=== PATIENT | male | born 1965 | race African-American/Black ===

== ENCOUNTER 2016-09-18 12:21 | Emergency (ER) | payer BC ==
[~2016-09-18] VITALS: Ht 165.1 cm; Wt 59.0 kg
[~2016-09-18 12:21] MED LIST: NAPR375T3 PO
[2016-09-18 12:24] VITALS: BP 128/79
--- NOTE | 2016-09-18 12:53 | PHYS DOC ---
Past Medical History Past Medical History: No Pertinent History Past Surgical History: Other Additional Past Surgical Histo: R knee Alcohol Use: Occasionally Drug Use: None Adult General Chief Complaint Chief Complaint: KNEE INJURY [facility] HPI Patient is a 51 year old male presents emergency department stating that he is having left knee pain. He states that he was jumping up and down on August 14 when he injured his left knee. He was seen here in the emergency department and had x-rays done which were negative for any fractures. He was provided with naproxen for pain and discomfort. He states he has been using an Pio wrap as well. Patient states that he called Dr. Monroe's office today to try to get an appointment in which she was on successful at obtaining an appointment. Patient then comes to the emergency department stating that he is having increased pain and discomfort and is requesting pain medication. Patient denies any new injuries denies any numbness or tingling down to his lower extremity. Review of Systems Review of Systems Constitutional: Denies fever or chills [] Eyes: Denies change in visual acuity, redness, or eye pain [] HENT: Denies nasal congestion or sore throat [] Respiratory: Denies cough or shortness of breath [] Cardiovascular: No additional information not addressed in HPI [] GI: Denies abdominal pain, nausea, vomiting, bloody stools or diarrhea [] : Denies dysuria or hematuria [] Musculoskeletal: Denies back pain. Left knee pain and discomfort Integument: Denies rash or skin lesions [] Neurologic: Denies headache, focal weakness or sensory changes [] Allergies Allergies Allergies Coded Allergies Type Severity Reaction Last Updated Verified No Known Drug Allergies 09/20/15 No Physical Exam Physical Exam Constitutional: Well developed, well nourished, no acute distress, non-toxic appearance. [] HENT: Normocephalic, atraumatic, bilateral external ears normal, oropharynx moist, no oral exudates, nose normal. [] Eyes: PERRLA, EOMI, conjunctiva normal, no discharge. [] Neck: Normal range of motion, no tenderness, supple, no stridor. [] Cardiovascular:Heart rate regular rhythm, no murmur [] Lungs & Thorax: Bilateral breath sounds clear to auscultation [] Abdomen: Bowel sounds normal, soft, no tenderness, no masses, no pulsatile masses. [] Skin: Warm, dry, no erythema, no rash. [] Back: No tenderness Extremities: No tenderness, no cyanosis, no clubbing, ROM intact, no edema. Left knee with negative Cherrie negative valgus and negative vargus noted. Patient able to ambulate without difficulty. Neurologic: Alert and oriented X 3, normal motor function, normal sensory function, no focal deficits noted. [] Psychologic: Affect normal, judgement normal, mood normal. [] Current Patient Data Vital Signs Vital Signs Date Time Temp Pulse Resp B/P Pulse Ox O2 Delivery O2 Flow Rate FiO2 09/18/16 12:24 97.9 98 16 97 Room Air 97.9 EKG EKG [] Radiology/Procedures Radiology/Procedures [] Course & Med Decision Making Course & Med Decision Making Pertinent Labs and Imaging studies reviewed. (See chart for details) Patient was seen here on August 14 and was prescribed naproxen for pain and discomfort. We'll recommend ice packs and elevation. We'll also recommended Pio wrap to help with the discomfort. Also recommended patient to follow up with Dr. Cavazos or Dr. Agudelo. Ice packs on 20 minutes off 20 minutes several times a day. Signs and symptoms to return back to emergency department been provided. Patient agrees with discharge instructions treatment regimens and follow-up recommendations. A call was placed to orthopedic Dr. Agudelo/[facility] office appointment was set up for the patient to be seen on September 26 at 8:45 in the morning with the nurse practitioner. [] Dragon Disclaimer Dragon Disclaimer This electronic medical record was generated, in whole or in part, using a voice recognition dictation system. Departure Departure Impression: Primary Impression: Knee pain, left Disposition: 01 HOME, SELF-CARE Condition: STABLE Referrals: NO PCP (PCP) Patient Instructions: Knee Pain, [id number] Additional Instructions: Activity as tolerated. Ice packs on 20 minutes off 20 minutes several times a day. Elevation as much as possible. Medication as prescribed. Take this medication with food as it may cause an upset stomach. He did develop an upset stomach stopped taking the medication. Wear the Pio wrap for comfort. Follow-up with orthopedic on September 26 at 8:45 in the morning be at the appointment at 8:30 to fill out paperwork. Return back to emergency department for signs and symptoms of become worse. Scripts Naproxen 500 Mg Tablet1 Tab PO BID #20 TAB Prov:LEONCIO EMERY NP 09/18/16 LEONCIO EMERY NP Sep 18, 2016 12:53
[2016-09-18] MEDS ORDERED: NAPR500T3 PO (13:11)
== END 2016-09-18 13:20 | disposition home or self-care (01) ==
LOC: ER 12:25
DX: M25.562 Pain in left knee (principal); Z98.890 Other specified postprocedural states
CPT/HCPCS: 99282

== ENCOUNTER 2017-06-23 03:54 | Emergency (ER) | payer BC ==
[~2017-06-23] VITALS: Ht 167.6 cm; Wt 59.0 kg
[~2017-06-23 03:54] MED LIST changes: +NAPR-695 PO; -NAPR375T3 PO; +NAPR500T4 PO
[2017-06-23 04:09] VITALS: BP 133/92
[2017-06-23] MEDS ORDERED: HYDR25CA PO (04:12)
--- NOTE | 2017-06-23 04:12 | PHYS DOC ---
Past Medical History Past Medical History: No Pertinent History Past Surgical History: Other Additional Past Surgical Histo: R knee Alcohol Use: Occasionally Drug Use: None Adult General Chief Complaint Chief Complaint: INSECT BITE HPI HPI This patient is a pleasant 52-year-old -[place] male otherwise healthy who presents tonight because he believes he's been bitten by some insects causing an itchy rash in the shoulder on the left. Patient first noted the rash yesterday when he came home after work. Rashes noted on his shoulder where he felt the insect biting. Tonight while sleeping he felt something crawling on him and he reached up he felt like he had a bug biting him on his shoulder again he came in now with a sample of the bug that bit him and caused a rash to. Patient denies any other specific complaints of fever, joint pains, chills , shortness of breath, bleeding from this rash, almost all moment. Patient denies any history of night sweats or weight loss. No recent antibiotics or medication changes Review of Systems Review of Systems Constitutional: Denies fever or chills [] Eyes: Denies change in visual acuity, redness, or eye pain [] HENT: Denies nasal congestion or sore throat [] Respiratory: Denies cough or shortness of breath [] Cardiovascular: No additional information not addressed in HPI [] GI: Denies abdominal pain, nausea, vomiting, bloody stools or diarrhea [] : Denies dysuria or hematuria [] Musculoskeletal: Denies back pain or joint pain [] Integument: Patient claims he has his multiple lesions on his left shoulder left her back secondary to insect bites Neurologic: Denies headache, focal weakness or sensory changes [] All other systems were reviewed and found to be within normal limits, except as documented in this note. Current Medications Current Medications Current Medications Medications (Trade) Dose Ordered Sig/Christen Start Time Stop Time Status Last Admin Dose Admin Hydroxyzine Pamoate (Vistaril) 25 mg PRN Q6HRS PRN 06/23/17 04:15 UNV Allergies Allergies Allergies Coded Allergies Type Severity Reaction Last Updated Verified No Known Drug Allergies 09/20/15 No Physical Exam Physical Exam Vital signs recorded on the chart patient and to be tachycardic likely secondary to agitation from itching. Constitutional: Well developed, well nourished, no acute distress, non-toxic appearance. [] Cardiovascular:Heart rate regular rhythm, no murmur [] Lungs & Thorax: Bilateral breath sounds clear to auscultation [] Skin: Warm, dry, no erythema, he has multiple small insect bites on his left upper shoulder with no vesicles, no satellite lesions, no evidence of target lesions no evidence of active bleeding. Patient has no joint involvement no palm or sole involvement or petechiae or purpura.[] Back: No tenderness, no CVA tenderness. [] Neurologic: Alert and oriented X 3,[] Psychologic: Affect normal, judgement normal, mood normal. [] Current Patient Data Vital Signs Vital Signs Date Time Temp Pulse Resp B/P (MAP) Pulse Ox O2 Delivery O2 Flow Rate FiO2 06/23/17 04:09 97.9 109 16 95 Room Air 97.9 EKG EKG [] Radiology/Procedures Radiology/Procedures [] Course & Med Decision Making Course & Med Decision Making Pertinent Labs and Imaging studies reviewed. (See chart for details) []Comes in with suspected insect bite unclear cause. He brought in a sample of the insect the believe is biting him but to me looks more like a piece of relief. Patient given reasons to clean his house and apply a bug repellent. Also suggest that he any extremity to come look at his apartment to see this any other signs of bed bugs or other bugs biting him that would be treated with local bug sprays. rash medical decision making reevaluation: The patient is now resting comfortably and feels better, is alert, is nontoxic, and is in no acute distress. The patient has a normal mental status and is neurologically intact. The rash presenting today as part of patient despite does not have any petechiae purpura, there is no palm or sole involvement, there is no joint pain or swelling, there are no mucous membrane lesions, no signs of abscess, and no bullae. The patient appears well, has no fever, no altered mental status, or signs of systemic toxicity. The history, exam, and diagnostic testing (if any) and current condition did not demonstrate signs of sepsis, Triangle spotted fever, meningitis, meningococcemia, Lyme disease, toxic shock syndrome, disseminated gonorrhea, endocarditis, measles, mumps, rubella, necrotizing fasciitis, TEN, Tomasz Aly syndrome, pemphigus vulgaris, dress syndrome, staphylococcal scalded skin syndrome or other systemic illness or cardiac further treatment, testing or consultation in the emergency department. The patient's vital signs have been stable, the patient condition is stable and appropriate for discharge. The patient will pursue further outpatient evaluation and primary care management as indicated in the discharge instructions. Dragon Disclaimer Dragon Disclaimer This electronic medical record was generated, in whole or in part, using a voice recognition dictation system. Departure Departure Impression: Primary Impression: Insect bites Additional Impression: Itchy skin Disposition: HOME, SELF-CARE Condition: STABLE Referrals: NO PCP (PCP) Patient Instructions: Insect Bite Additional Instructions: discharge: I've spoken with the patient and/or caregivers. I've explained the patient's condition, diagnosis and treatment plan based on information available to me at this time. I've answered the patient's and/or caregivers questions and addressed any concerns. The patient and/or caregivers have a good understanding the patient's diagnosis, condition and treatment plan as can be expected at this point. Vital signs have been stabilized. The patient's condition is stable for discharge from the emergency department. The patient will pursue further outpatient evaluation with her primary care provider or other designated consulting physician as outlined in the discharge instructions. Patient and/or caregivers are agreeable to this plan of care and follow-up instructions have been explained in detail. The patient and/or caregivers have received these instructions in written format and expressed understanding of these discharge instructions. The patient and her caregivers are aware that if any significant change in condition or worsening of symptoms should prompt him to immediately return to this of the closest emergency department. If an emergent department is not readily available I would encourage him to call 911. Scripts Hydroxyzine Pamoate (VISTARIL) 25 Mg Capsule 25 MG PO QID for 5 Days, #20 CAP Prov: ROMEL JOHN MD 06/23/17 Problem Qualifiers ROMEL JOHN MD Jun 23, 2017 04:12
[2017-06-23] MEDS ORDERED: hydrOXYzine PAMOATE 25 MG CAPSULE PO PRN (04:15)
== END 2017-06-23 04:20 | disposition home or self-care (01) ==
LOC: ER 03:54
DX: S40.262A Insect bite (nonvenomous) of left shoulder, initial encounter (principal); W57.XXXA Bitten or stung by nonvenomous insect and other nonvenomous arthropods, initial encounter; Y93.89 Activity, other specified; Y92.89 Other specified places as the place of occurrence of the external cause; Y99.8 Other external cause status
CPT/HCPCS: 99283; Q0177

== ENCOUNTER 2018-01-19 08:56 | Emergency (ER) | payer SELFPAY, BC ==
[2018-01-19] MEDS: CYCLOBENZAPRINE 10 MG TABLET. PO (09:26)
[2018-01-19] MEDS: HYDROcodone/APAP 5/325MG 1 TAB TABLET PO (09:27)
== END 2018-01-19 10:37 | disposition home or self-care (01) ==
LOC: ER 10:37
DX: S90.112A Contusion of left great toe without damage to nail, initial encounter (principal); W22.01XA Walked into wall, initial encounter; Y93.89 Activity, other specified; Y92.89 Other specified places as the place of occurrence of the external cause; Y99.8 Other external cause status
CPT/HCPCS: 73630; 99283; 99284

== ENCOUNTER 2019-04-14 12:55 | Emergency (ER) | payer SELFPAY ==
[~2019-04-14] VITALS: Ht 167.6 cm; Wt 59.0 kg
[~2019-04-14 12:55] MED LIST changes: +HYDR25CA PO; +NAPR-514 PO; -NAPR500T4 PO
[2019-04-14 14:18] VITALS: BP 122/86
--- NOTE | 2019-04-14 14:21 | PHYS DOC ---
Past Medical History Past Medical History: No Pertinent History Past Surgical History: Other Additional Past Surgical Histo: R knee Alcohol Use: Occasionally Drug Use: None Adult General Chief Complaint Chief Complaint: DIARRHEA HPI HPI Patient is a 54 year old male who presents with complaining of diarrhea. Patient states he thinks he ate too much onion with his burger yesterday and had 3 episodes of diarrhea since last night with the last one about 2 hours prior to arrival to ER. And complaining of mild crampy abdominal pain without nausea and vomiting, fever and chills, urinary symptom, sick contact. Patient states he missed his work today and wants work excuse. Review of Systems Review of Systems Constitutional: Denies fever or chills [] Eyes: Denies change in visual acuity, redness, or eye pain [] HENT: Denies nasal congestion or sore throat [] Respiratory: Denies cough or shortness of breath [] Cardiovascular: No additional information not addressed in HPI [] GI: Denies nausea, vomiting, bloody stools, reports abdominal pain and diarrhea [] : Denies dysuria or hematuria [] Musculoskeletal: Denies back pain or joint pain [] Integument: Denies rash or skin lesions [] Neurologic: Denies headache, focal weakness or sensory changes [] Endocrine: Denies polyuria or polydipsia [] All other systems were reviewed and found to be within normal limits, except as documented in this note. Allergies Allergies Allergies Coded Allergies Type Severity Reaction Last Updated Verified No Known Drug Allergies 09/20/15 No Physical Exam Physical Exam Constitutional: Well developed, well nourished, no distress, non-toxic appearance. [] HENT: Normocephalic, atraumatic, moist oral mucosa. Eyes: PERRLA, EOMI, conjunctiva normal, no discharge. [] Neck: Normal range of motion, no tenderness, supple, no stridor. [] Cardiovascular:Heart rate regular rhythm, no murmur [] Lungs & Thorax: Bilateral breath sounds clear to auscultation [] Abdomen: Bowel sounds normal, soft, no tenderness, no masses, no pulsatile masses. [] Skin: Warm, dry, no erythema, no rash. [] Back: No tenderness, no CVA tenderness. [] Extremities: No tenderness, no cyanosis, no clubbing, ROM intact, no edema. [] Neurologic: Alert and oriented X 3, no focal deficits noted. [] Psychologic: Affect normal, judgement normal, mood normal. [] Current Patient Data Vital Signs Vital Signs Date Time Temp Pulse Resp B/P (MAP) Pulse Ox O2 Delivery O2 Flow Rate FiO2 04/14/19 13:45 98.0 84 17 119/83 (95) 95 Room Air 98.0 EKG EKG [] Radiology/Procedures Radiology/Procedures [] Course & Med Decision Making Course & Med Decision Making Evaluation of patient in ER showed 54-year-old male patient with complaint of 2 episodes of diarrhea since yesterday without other complaints. Patient had unremarkable physical exam and wanted a work excuse. Dragon Disclaimer Dragon Disclaimer This electronic medical record was generated, in whole or in part, using a voice recognition dictation system. Departure Departure Impression: Primary Impression: Food poisoning Disposition: HOME, SELF-CARE (at 1420) Condition: STABLE Referrals: NO PCP (PCP) Patient Instructions: Diarrhea, Food Poisoning Additional Instructions: Drink plenty of liquids Follow-up with your primary care physician in 3-5 days Return to ER if not getting better Do not eat solid food today Take [id number] Imodium as needed for diarrhea ERNESTO BURCH MD Apr 14, 2019 14:21
== END 2019-04-14 14:25 | disposition home or self-care (01) ==
LOC: ER 12:55
DX: A05.9 Bacterial foodborne intoxication, unspecified (principal); R19.7 Diarrhea, unspecified
CPT/HCPCS: 99281

== ENCOUNTER 2019-04-15 12:38 | Emergency (ER) | payer SELFPAY ==
[~2019-04-15] VITALS: Ht 167.6 cm; Wt 59.0 kg
[2019-04-15 12:49] VITALS: BP 151/100
--- NOTE | 2019-04-15 12:51 | PHYS DOC ---
Past Medical History Past Medical History: No Pertinent History Past Surgical History: Other Additional Past Surgical Histo: R knee Alcohol Use: Occasionally Drug Use: None Adult General Chief Complaint Chief Complaint: DIARRHEA HPI HPI Patient is a 54 year old male who presents with complaining of diarrhea. Patient was seen in this emergency room yesterday with complaining of 2 episodes of diarrhea and was advised to take liquid diet and [id number] Imodium. Patient did not take any medication and had hamburger last night and had 2 more episodes of diarrhea without abdominal pain, nausea and vomiting, fever and chills, urinary symptom. Patient asking for work excuse. Review of Systems Review of Systems Constitutional: Denies fever or chills [] Eyes: Denies change in visual acuity, redness, or eye pain [] HENT: Denies nasal congestion or sore throat [] Respiratory: Denies cough or shortness of breath [] Cardiovascular: No additional information not addressed in HPI [] GI: Denies abdominal pain, nausea, vomiting, bloody stools, reports diarrhea [] : Denies dysuria or hematuria [] Musculoskeletal: Denies back pain or joint pain [] Integument: Denies rash or skin lesions [] Neurologic: Denies headache, focal weakness or sensory changes [] Endocrine: Denies polyuria or polydipsia [] All other systems were reviewed and found to be within normal limits, except as documented in this note. Allergies Allergies Allergies Coded Allergies Type Severity Reaction Last Updated Verified No Known Drug Allergies 09/20/15 No Physical Exam Physical Exam Constitutional: Well developed, well nourished, no distress, non-toxic appearance. [] HENT: Normocephalic, atraumatic. Eyes: PERRLA, EOMI, conjunctiva normal, no discharge. [] Neck: Normal range of motion, no tenderness, supple, no stridor. [] Cardiovascular:Heart rate regular rhythm, no murmur [] Lungs & Thorax: Bilateral breath sounds clear to auscultation [] Abdomen: Bowel sounds normal, soft, no tenderness, no masses, no pulsatile masses. [] Skin: Warm, dry, no erythema, no rash. [] Back: No tenderness, no CVA tenderness. [] Extremities: No tenderness, no cyanosis, no clubbing, ROM intact, no edema. [] Neurologic: Alert and oriented X 3, no focal deficits noted. [] Psychologic: Affect normal, judgement normal, mood normal. [] Current Patient Data Vital Signs Vital Signs Date Time Temp Pulse Resp B/P (MAP) Pulse Ox O2 Delivery O2 Flow Rate FiO2 04/15/19 12:49 98.1 100 18 151/100 (117) 98 Room Air 98.1 EKG EKG [] Radiology/Procedures Radiology/Procedures [] Course & Med Decision Making Course & Med Decision Making I've spoken with the patient and/or caregivers. I've explained the patient's condition, diagnosis and treatment plan based on information available to me at this time. I've answered the patient's and/or caregivers questions and addressed any concerns. The patient and/or caregivers have a good understanding the patient's diagnosis, condition and treatment plan as can be expected at this point. Vital signs have been stabilized. The patient's condition is stable for discharge from the emergency department. The patient will pursue further outpatient evaluation with her primary care provider or other designated consulting physician as outlined in the discharge instructions. Patient and/or caregivers are agreeable to this plan of care and follow-up instructions have been explained in detail. The patient and/or caregivers have received these instructions in written format and expressed understanding of these discharge instructions. The patient and her caregivers are aware that if any significant change in condition or worsening of symptoms should prompt him to immediately return to this of the closest emergency department. If an emergent department is not readily available I would encourage him to call 911. Beka Disclaimer Dragon Disclaimer This electronic medical record was generated, in whole or in part, using a voice recognition dictation system. Departure Departure Impression: Primary Impression: Diarrhea Additional Impression: Encounter to obtain excuse from work Disposition: HOME, SELF-CARE (at 1250) Condition: STABLE Referrals: NO PCP (PCP) Patient Instructions: Diarrhea Additional Instructions: Drink plenty of liquids Follow-up with your primary care physician in 3-5 days Return to ER if not getting better Take [id number] Imodium as needed for diarrhea Do not eat solid food for 24 hours Problem Qualifiers Primary Impression: Diarrhea Diarrhea type: unspecified type Qualified Codes: R19.7 - Diarrhea, unspecified ERNESTO BURCH MD Apr 15, 2019 12:51
== END 2019-04-15 12:53 | disposition home or self-care (01) ==
LOC: ER 12:38
DX: R19.7 Diarrhea, unspecified (principal)
CPT/HCPCS: 99281

== ENCOUNTER 2019-09-16 10:39 | Emergency (ER) | payer SELFPAY ==
[~2019-09-16] VITALS: Ht 167.6 cm; Wt 58.0 kg
[2019-09-16 11:45] VITALS: BP 124/88
--- NOTE | 2019-09-16 13:09 | PHYS DOC ---
Past Medical History Past Medical History: No Pertinent History Past Surgical History: Other Additional Past Surgical Histo: R knee Smoking Status: Never Smoker Alcohol Use: Occasionally Drug Use: None Adult General Chief Complaint Chief Complaint: DIARRHEA HPI HPI Patient is a 54 year old male patient who presents with diarrhea. Patient reports he has had an intermittent diarrhea on and off for the last 2 days. States he is had only 2-3 episodes total of diarrhea states he had to miss work because of this. States he does not have any abdominal pain, no nausea, no vomiting, no diarrhea. States he has been eating a lot of [place] food recently, thinks this may be what is causing his diarrhea. States he had a formed stool this morning after he had a diarrhea episode when he woke up. D enies any recent antibiotic use. Denies any medications. Denies any other concerns Review of Systems Review of Systems Constitutional: Denies fever or chills [] Eyes: Denies change in visual acuity, redness, or eye pain [] HENT: Denies nasal congestion or sore throat [] Respiratory: Denies cough or shortness of breath [] Cardiovascular: No additional information not addressed in HPI [] GI: Denies abdominal pain, nausea, vomiting, bloody stools reports to 3 episodes of diarrhea over the last couple days. [] : Denies dysuria or hematuria [] Musculoskeletal: Denies back pain or joint pain [] Integument: Denies rash or skin lesions [] Neurologic: Denies headache, focal weakness or sensory changes [] Endocrine: Denies polyuria or polydipsia [] All other systems were reviewed and found to be within normal limits, except as documented in this note. Allergies Allergies Allergies Coded Allergies Type Severity Reaction Last Updated Verified No Known Drug Allergies 09/20/15 No Physical Exam Physical Exam Constitutional: Well developed, well nourished, no acute distress, non-toxic appearance. Conversational [] HENT: Normocephalic, atraumatic,, oropharynx moist, no oral exudates, nose normal. [] Eyes: PERRLA, EOMI, conjunctiva normal, no discharge. [] Neck: Normal range of motion, no tenderness, supple, no stridor. [] Cardiovascular:Heart rate regular rhythm, no murmur [] Lungs & Thorax: Bilateral breath sounds clear to auscultation [] Abdomen: Bowel sounds normal, soft, no tenderness, no masses, no pulsatile m asses. [] Skin: Warm, dry, no erythema, no rash. [] Back: No tenderness, no CVA tenderness. [] Extremities: No tenderness, no cyanosis, no clubbing, ROM intact, no edema. [] Neurologic: Alert and oriented X 3, normal motor function, normal sensory function, no focal deficits noted. [] Psychologic: Affect normal, judgement normal, mood normal. [] Current Patient Data Vital Signs Vital Signs Date Time Temp Pulse Resp B/P (MAP) Pulse Ox O2 Delivery O2 Flow Rate FiO2 09/16/19 11:45 98.3 96 16 124/88 (100) 95 98.3 09/16/19 10:45 Room Air EKG EKG [] Radiology/Procedures Radiology/Procedures [] Course & Med Decision Making Course & Med Decision Making Pertinent Labs and Imaging studies reviewed. (See chart for details) [Discussed findings with patient, with consideration to do labs due to his recurrent diarrhea. Patient states he does not want any lab done at this time. States he does not feel it is that bad. Discussed with patient importance of basic diet, avoiding heavy and greasy foods. He may try to take some akpz-nxh-dhtethp medications as needed. Follow-up with his primary care provider as needed. Patient with no further questions or concerns. Provide work note to return to work tomorrow] Dragon Disclaimer Dragon Disclaimer This electronic medical record was generated, in whole or in part, using a voice recognition dictation system. Departure Departure Impression: Primary Impression: Diarrhea Disposition: HOME, SELF-CARE Condition: STABLE Referrals: NO PCP (PCP) Patient Instructions: Diarrhea, Diet for Diarrhea, Adult Additional Instructions: As we discussed, try to eat a basic diet over the next few days. Nothing heavy, nothing spicy, nothing greasy. Try to do basic diet such as bananas, rice, apples, toast. Drink plenty fluids. Get some rest. Follow-up with your prima ry care provider as needed Problem Qualifiers Primary Impression: Diarrhea Diarrhea type: unspecified type Qualified Codes: R19.7 - Diarrhea, unspecified WIL DUBON APRN Sep 16, 2019 13:09
== END 2019-09-16 13:32 | disposition home or self-care (01) ==
LOC: ER 10:39
DX: R19.7 Diarrhea, unspecified (principal)
CPT/HCPCS: 99281

== ENCOUNTER 2019-11-29 16:30 | Emergency (ER) | payer SELFPAY ==
[~2019-11-29] VITALS: Ht 167.6 cm; Wt 64.5 kg
[2019-11-29 16:36] VITALS: BP 136/84
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
== END 2019-11-29 17:15 | disposition home or self-care (01) ==
LOC: ER 16:30
DX: S00.33XA Contusion of nose, initial encounter (principal); R60.0 Localized edema; Z98.890 Other specified postprocedural states; Y08.89XA Assault by other specified means, initial encounter; Y93.89 Activity, other specified; Y92.89 Other specified places as the place of occurrence of the external cause; Y99.8 Other external cause status
CPT/HCPCS: 99281

== ENCOUNTER 2020-03-13 11:08 | Emergency (ER) | payer SELFPAY ==
[~2020-03-13] VITALS: Ht 167.6 cm; Wt 63.6 kg
[2020-03-13 12:10] VITALS: BP 173/86
[2020-03-13] MEDS ORDERED: diazePAM 5 MG TABLET PO ONE (13:00)
[2020-03-13] MEDS ORDERED: HYDROcodone/APAP 5/325MG 1 TAB TABLET PO ONE (13:00)
[2020-03-13] MEDS ORDERED: methylPREDNISolone SOD SUCC PF 125 MG/2 ML VIAL. IM ONE (13:00)
[2020-03-13] MEDS ORDERED: KETOROLAC 60 MG/2 ML VIAL. IM ONE (13:00)
[2020-03-13] MEDS ORDERED: METH4TAB2 PO (13:21)
[2020-03-13] MEDS ORDERED: CYCL10TA2 PO (13:21)
[2020-03-13] MEDS ORDERED: DICL50TA2 PO (13:21)
--- NOTE | 2020-03-13 13:22 | PHYS DOC ---
Past Medical History Past Medical History: No Pertinent History (BEVERLY EWING APRN) Past Surgical History: Other Additional Past Surgical Histo: R knee, T6 & T7 surgery (BEVERLY EWING APRN) Smoking Status: Never Smoker Alcohol Use: Occasionally Drug Use: None (BEVERLY EWING APRN) General Adult EDM: Chief Complaint: BACK PAIN OR INJURY HPI: HPI: Patient is a 55 year old male who presents with mild intermittent left low back pain nonradiating in nature that began 3 weeks ago after he lifted something heavy at work. Patient denies any loss of bowel/bladder function. States the pain is worse on certain movements. Denies anything specifically relieving the pain but states his had similar issue before and was given a couple shots in the ED with some relief. Denies any numbness or tingling to bilateral lower extremities. (BEVERLY EWING APRN) Review of Systems: Review of Systems: Constitutional: Denies fever or chills. [] GI: Denies abdominal pain, nausea, vomiting, bloody stools or diarrhea. [] : Denies dysuria. [] Musculoskeletal: Reports left low back pain Integument: Denies rash. [] Neurologic: Denies headache, focal weakness or sensory changes. [] Psychiatric: Denies depression or anxiety. [] (BEVERLY EWING APRN) Heart Score: Risk Factors: Risk Factors: DM, Current or recent (<one month) smoker, HTN, HLP, family history of CAD, obesity. Risk Scores: Score 0 - 3: 2.5% MACE over next 6 weeks - Discharge Home Score 4 - 6: 20.3% MACE over next 6 weeks - Admit for Clinical Observation Score 7 - 10: 72.7% MACE over next 6 weeks - Early Invasive Strategies (BEVERLY EWING APRN) Current Medications: Current Medications Medications (Trade) Dose Ordered Sig/Christen Start Time Stop Time Status Last Admin Dose Admin Acetaminophen/ Hydrocodone Bitart (Lortab 5/325) 1 tab 1X ONCE 03/13/20 13:00 03/13/20 13:01 DC 03/13/20 13:06 1 TAB Diazepam (Valium) 5 mg 1X ONCE 03/13/20 13:00 03/13/20 13:01 DC 03/13/20 13:06 5 MG Ketorolac Tromethamine (Toradol Im) 60 mg 1X ONCE 03/13/20 13:00 03/13/20 13:01 DC 03/13/20 13:07 60 MG Methylprednisolone Sodium Succinate (SOLU-Medrol 125MG VIAL) 125 mg 1X ONCE 03/13/20 13:00 03/13/20 13:01 DC 03/13/20 13:06 125 MG (BEVERLY EWING APRN) Allergies: Allergies: Allergies Coded Allergies Type Severity Reaction Last Updated Verified No Known Drug Allergies 09/20/15 No (BEVERLY EWING APRN) Physical Exam: PE: Constitutional: Well developed, well nourished, no acute distress, non-toxic appearance. [] Abdomen: Bowel sounds normal, soft, no tenderness, no masses, no pulsatile masses. [] Skin: Warm, dry, no erythema, no rash. [] Back: Diffuse paraspinal muscle tenderness to the left lower lumbar spine, no midline lumbar spine tenderness, no CVA tenderness. [] Extremities: No tenderness, no cyanosis, no clubbing, ROM intact, no edema. [] Neurologic: Alert and oriented X 3, normal motor function, normal sensory function, no focal deficits noted. [] Psychologic: Affect normal, judgement normal, mood normal. [] (BEVERLY EWING APRN) Current Patient Data: Vital Signs: Vital Signs Date Time Temp Pulse Resp B/P (MAP) Pulse Ox O2 Delivery O2 Flow Rate FiO2 03/13/20 13:06 20 98 03/13/20 12:10 99.2 98 173/86 (115) Room Air 99.2 (BEVERLY EWING APRN) EKG: EKG: [] (BEVERLY EWING APRN) Radiology/Procedures: Radiology/Procedures: [] (BEVERLY EWING APRN) Course & Med Decision Making: Course & Med Decision Making Pertinent Labs and Imaging studies reviewed. (See chart for details) This is a 55-year-old male patient with muscle strain to the lumbar spine after lifting something heavy at work 3 weeks ago. Patient has no cauda equina syndrome symptoms. Pain relief provided in the ED. Follow-up with PCP in 1 to 2 weeks (BEVERLY EWING APRN) Dragon Disclaimer: Dragon Disclaimer: This electronic medical record was generated, in whole or in part, using a voice recognition dictation system. (BEVERLY EWING APRN) Departure Departure Impression: Primary Impression: Acute lumbosacral myofascial strain Qualified Codes: S39.012A - Strain of muscle, fascia and tendon of lower back, initial encounter Disposition: HOME, SELF-CARE Condition: STABLE Referrals: NO PCP (PCP) LEIGH JAMES MD follow up with your doctor in 1-2 weeks Patient Instructions: Lumbosacral Strain Additional Instructions: You were evaluated in the emergency room for lumbosacral muscle strain, apply a heating pad to your lumbar spine. Continue to exercise especially being up and ambulating. Follow-up with your doctor in 1 to 2 weeks Scripts Diclofenac Potassium (DICLOFENAC POTASSIUM) 50 Mg Tablet 1 TAB PO BID, #20 TAB 0 Refills Prov: BEVERLY EWING APRN 03/13/20 Methylprednisolone (MEDROL) 4 Mg Tab.ds.pk 1 PKG PO UD, #1 PKG Prov: BEVERLY EWING APRN 03/13/20 Cyclobenzaprine Hcl (CYCLOBENZAPRINE HCL) 10 Mg Tablet 1 TAB PO TID, #30 TAB Prov: BEVERLY EWING APRN 03/13/20 Justicifation of Admission Dx: Justifications for Admission: Justification of Admission Dx: N/A (BEVERLY EWING APRN) Attending Signature Attending Signature I have reviewed the PA/STATISTICAL REPORTING ANALYST's note and plan of care. I was available for consultation as needed during the patient's visit in the emergency department. I agree with the clinical impression, plan, and disposition. (MIREYA BROWNE DO) BEVERLY EWING APRN Mar 13, 2020 13:21 MIREYA BROWNE DO Mar 14, 2020 06:16
== END 2020-03-13 13:48 | disposition home or self-care (01) ==
LOC: ER 11:08
DX: S39.012A Strain of muscle, fascia and tendon of lower back, initial encounter (principal); Z98.890 Other specified postprocedural states; X50.0XXA Overexertion from strenuous movement or load, initial encounter; Y93.89 Activity, other specified; Y92.89 Other specified places as the place of occurrence of the external cause; Y99.0 Civilian activity done for income or pay
CPT/HCPCS: 96372; 99284; J1885; J2930